=== PATIENT | female | born 2000 | race African-American/Black ===

== ENCOUNTER 2023-11-22 23:32 | Emergency (ER) | payer BC, SELFPAY ==
[2023-11-22 23:36] VITALS: BP 120/86
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
[2023-11-23 00:23] VITALS: BMI 21.8
[2023-11-23 03:33] VITALS: BP 116/87
== END 2023-11-23 03:41 | disposition home or self-care (01) ==
LOC: EMR 23:32
PROVIDERS: EMERGENCY PHYSICIAN Student in an Organized Health Care Education/Training Program
DX: S82.401A Unspecified fracture of shaft of right fibula, initial encounter for closed fracture (principal); S80.211A Abrasion, right knee, initial encounter; M25.461 Effusion, right knee; V03.10XA Pedestrian on foot injured in collision with car, pick-up truck or van in traffic accident, initial encounter; Y92.481 Parking lot as the place of occurrence of the external cause; R03.0 Elevated blood-pressure reading, without diagnosis of hypertension
CPT/HCPCS: 99283; 29505; 73564; 73590; 73610